=== PATIENT | male | born 1975 | race Caucasian/White ===

== ENCOUNTER 2017-06-19 16:35 | Inpatient (IN) | payer BC ==
[~2017-06-19] VITALS: Ht 188 cm; Wt 99.4 kg
--- NOTE | ~2017-06-19 | CON ---
PATIENT'S NAME: LESLIE GUO [facility] AGE: 41 Y [address] ROOM: [place] [address] LOCATION: [facility] ADMIT DATE: 06/19/2017 Consultation DISCHARGE DATE: FAMILY PHYSICIAN: Abimael Arreguin MD ATTENDING PHYSICIAN: JONAH NOBLE DATE OF CONSULTATION: 06/20/2017 REFERRING PHYSICIAN: GENEVA LOVE MD CHIEF COMPLAINT: Left foot pain and swelling. HISTORY OF PRESENT ILLNESS: Mr. Guo is a pleasant 41-year-old gentleman with a history of diabetes mellitus and peripheral diabetic neuropathy with complaints of left third toe pain and swelling that began approximately a week and a half ago. He developed erythema, warmth, and discharge from the tip of the toe. He noted blackening of the tip of the toe along with swelling and discomfort. It is something that he did not particularly pay attention to, but then recently noticed. He was seen and evaluated by his primary care doctor who placed him on oral antibiotics. There appeared to be some improvement in the cellulitis that was propagating up the leg, though the toe remained swollen, erythematous, and with purulent drainage coming from the tip of the toe. 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 He reports that his diabetes is otherwise fairly well controlled with the sugars in the low 100s with a hemoglobin A1c of approximately 7.5 per his report. Aggravating factors include standing, walking, and bearing weight, drainage soils the socks. Alleviating factors include rest, ice, and elevation. An MRI of the foot was obtained by the primary care provider, and there was concern for osteomyelitis. He has been started on IV antibiotics. Currently, the patient denies any constitutional symptoms such as fever, chills, or night sweats. He also denies any dizziness, chest pain, shortness of breath, blurred vision, nausea, vomiting, or diarrhea. PAST MEDICAL HISTORY: Includes type 2 diabetes and hyperlipidemia. PAST SURGICAL HISTORY: None. MEDICATIONS: Include: 1. AndroGel. 2. Aspirin. 3. Cialis. PATIENT'S NAME: LESLIE GUO [facility] AGE: 41 Y [address] ROOM: [place] [address] LOCATION: [facility] ADMIT DATE: 06/19/2017 Consultation DISCHARGE DATE: FAMILY PHYSICIAN: Abimael Arreguin MD ATTENDING PHYSICIAN: JONAH NOBLE 4. Invokana. 5. Meloxicam. 6. Metformin. ALLERGIES: NO KNOWN DRUG ALLERGIES. FAMILY HISTORY: Includes cancer, diabetes, and hypertension. SOCIAL HISTORY: The patient denies any alcohol, tobacco, or illicit drug use currently. REVIEW OF SYSTEMS: A 10-point review of systems is otherwise as mentioned above in the HPI. The patient's issue is musculoskeletal and pertains to the left lower extremity. The rest of the patient's review of systems is otherwise negative other than what is mentioned above. PHYSICAL EXAMINATION: VITAL SIGNS. Include temperature 98.2, respirations 16, heart rate of 53, and blood pressure 130/70. HEENT: Normocephalic and atraumatic. Extraocular movements are intact. PERRLA. Moist mucous membranes. Oropharyngeal airway is clear. NECK: Supple. Trachea is in the midline. CARDIOVASCULAR: Regular rate and rhythm. CHEST: Normal and symmetric respirations observed bilaterally. ABDOMEN: Soft, nontender, and nondistended. MUSCULOSKELETAL: Left Lower Extremity: Focal examination of the patient's left lower extremity reveals that the compartments of the thigh, leg, and foot are soft. There are palpable dorsalis pedal and posterior tibial pulses. There appears to be good capillary refill in all the toes except the third. Focal examination of the third digit reveals surrounding erythema, sausage digit with swelling, and a 2 cm x 2 cm necrotic stage IV diabetic ulcer at the tip of the toe. The patient has pain with manipulation of the toe. There appears to be some trace cellulitis coming up the foot, though it appears to be resolving as he is currently on IV antibiotics. Dorsiflexion of the ankle is to neutral with the knee extended and improves 15 degrees past neutral with the knee flexed. The patient has normal knee exam with full range of motion where the collaterals and cruciates are stable. There is no knee joint effusion. LABORATORY VALUES: Include hemoglobin of 14, hematocrit of 43.4, white blood cell count of 6.9, and platelet count of 217. CRP is 1.44 and ESR is 22, both elevated. Glucose PATIENT'S NAME: LESLIE GUO [facility] AGE: 41 Y [address] ROOM: [address] [address] LOCATION: [facility] ADMIT DATE: 06/19/2017 Consultation DISCHARGE DATE: FAMILY PHYSICIAN: Abimael Arreguin MD ATTENDING PHYSICIAN: JONAH NOBLE currently 157. IMAGING: An MRI of the left foot reveals swelling and bony marrow edema in the third toe with associated soft tissue swelling consistent with cellulitis. No focal collection or abscess noted. IMPRESSION: 1. Left third toe gangrene with stage IV diabetic pressure sore with surrounding cellulitis and purulent drainage. 2. Diabetes mellitus. 3. Diabetic peripheral neuropathy. 4. Gastrocnemius equinus/shortened Achilles tendon. PLAN: I had a long discussion today with the patient regarding his left lower extremity. The patient has an ulcer at the third toe that is infected. There is likely underlying osteomyelitis. Regardless, it is not healing and has not healed with antibiotic therapy. I am recommending amputation of the third toe at the metatarsophalangeal joint and a gastrocnemius recession procedure to address the equinus present. I discussed the risks, benefits, and alternatives to pursuing surgical intervention with the patient in detail. I discussed the risks of anesthesia, infection, bleeding, and/or injury to neurovascular structures. Permit obtained. Informed consent was also obtained. The patient would like to proceed with surgery. Currently, the patient is n.p.o. for now. He will be nonweightbearing on the left lower extremity. They may continue the IV antibiotics. We will likely also obtain intraoperative cultures. I would like to plan for surgery as soon as this afternoon to treat this definitively. The patient expressed understanding of this. We will plan for surgery as soon as this afternoon. MD BILL MILLAN/obed /[id number] d: 06/20/17 1355 t: 06/24/17 0824, CONSULTATION REPORT
--- NOTE | ~2017-06-19 | OR ---
PATIENT'S NAME: LESLIE GUO [facility] AGE: 41 Y [address] ROOM: [place] [address] LOCATION: [facility] ADMIT DATE: 06/19/2017 OR/Procedure Report DISCHARGE DATE: FAMILY PHYSICIAN: Abimael Arreguin MD ATTENDING PHYSICIAN: JONAH NOBLE SURGEON: Pedro Bro MD APPRENTICE ARCHITECT: Andres Garrett PA-C. DATE OF PROCEDURE: 06/20/2017 PREOPERATIVE DIAGNOSES: 1. Left 3rd toe stage 4 diabetic ulcer with osteomyelitis and gangrene. 2. Shortened Achilles tendon/gastrocnemius equinus. POSTOPERATIVE DIAGNOSES: 1. Left 3rd toe stage 4 diabetic ulcer with osteomyelitis and gangrene. 2. Shortened Achilles tendon/gastrocnemius equinus. PROCEDURE: 1. Left gastrocnemius recession procedure. 2. Left 3rd toe amputation at metatarsophalangeal joint. 3. Use of intraoperative fluoroscopy, less than 1 hour. ANESTHESIA: General endotracheal anesthesia. FLUIDS: See Anesthesia report. ESTIMATED BLOOD LOSS: Minimal. TOURNIQUET: Left proximal thigh 250 mmHg. SPECIMEN: Left 3rd toe. COMPLICATIONS: None. DISPOSITION: Stable in PACU. COUNTS: All counts correct. INDICATIONS: Mr. Guo is a pleasant 41-year-old gentleman who underwent the noted procedures above. The risks, benefits, and alternatives of pursuing surgical intervention were discussed with the patient in detail. I marked the patient's left lower extremity indicating the correct surgical site. Anesthesia was consulted for their perioperative evaluation of the patient. DESCRIPTION OF PROCEDURE: The patient was brought from the holding area to PATIENT'S NAME: LESLIE GUO [facility] AGE: 41 Y [address] ROOM: [address] [address] LOCATION: [facility] ADMIT DATE: 06/19/2017 OR/Procedure Report DISCHARGE DATE: FAMILY PHYSICIAN: Abimael Arreguin MD ATTENDING PHYSICIAN: JONAH NOBLE the operating room. A time-out was performed. General endotracheal anesthesia was administered. The patient was supine on the operating room table. Left lower extremity was then prepped and draped in a sterile fashion. An Esmarch was used to exsanguinate the limb. The tourniquet was inflated to 250 mmHg. I turned my attention the medial aspect of the leg. A surgical incision was made at the medial leg using a 15 blade knife through skin and subcutaneous tissue. I then incised the fascia of the medial aspect of the leg, I identified the gastrocnemius aponeurosis. I performed my gastrocnemius recession procedure. I had to dorsiflex the ankle and I achieved improved ankle dorsiflexion. The wound was then copiously irrigated and closed in layers. The skin was approximated with kera. I then turned my attention to the foot. There was cellulitis, erythema, and swelling of the toe along with a stage 4 ulcer with purulent drainage coming from the plantar surface of the tip of the third toe. Using a 15 blade knife, I made a fishmouth flap at the dorsal and plantar aspects of the toe to amputate it at the metatarsophalangeal joint. I introduced intraoperative fluoroscopy to identify the before and after amputation. The intraoperative fluoroscopy indicated a successful left third toe amputation at the metatarsophalangeal joint of the foot. The wound was then copiously irrigated with a normal sterile saline solution via pulsatile lavage. The wound was then approximated using a 2-0 nylon suture in an interrupted horizontal mattress fashion. Sterile dressing was placed in the form of Xeroform, followed by 4x4, Webril, and Kayode bandage. The patient was placed into a postop shoe. The amputated toe was sent for specimen. The patient was then transferred from the operating room table onto a hospital bed and extubated. He was brought to the recovery room in stable condition. There were no intraoperative complications noted. Of note, my PA, Andres Garrett PA-C, played an integral role in the intraoperative care of this patient. This included preoperative positioning, intraoperative expert retraction, and closing and dressing functions. IMPRESSION: The patient is status post the noted procedures above. PLAN: The patient will be nonweightbearing on the left lower extremity in a postop shoe. We encouraged to rest, ice, and elevate the leg going forward. PATIENT'S NAME: LESLIE GUO [facility] AGE: 41 Y [address] ROOM: [address] [address] LOCATION: [facility] ADMIT DATE: 06/19/2017 OR/Procedure Report DISCHARGE DATE: FAMILY PHYSICIAN: Abimael Arreguin MD ATTENDING PHYSICIAN: JONAH NOBLE Postoperative antibiotics will be administered per routine. Infectious Disease consult may be obtained postoperatively. DVT prophylaxis may be in the form of aspirin. I will continue to monitor the patient closely in the postoperative period. MD BILL MILLAN/obed /[id number] d: 06/20/17 1854 t: 06/24/17 0827, OPERATIVE SUMMARY
--- NOTE | ~2017-06-19 | DS ---
PATIENT'S NAME: LESLIE GUO [facility] AGE: 41 Y [address] ROOM: [address] [place], [place] [address] LOCATION: [facility] [place] ADMIT DATE: 06/19/2017 Discharge Summary DISCHARGE DATE: 06/24/2017 FAMILY PHYSICIAN: Abimael Arreguin MD ATTENDING PHYSICIAN: Talon Jones HOSPITAL COURSE: This is a 41-year-old white male, who has known type 2 diabetes previously under control. He has had a sore which began after an injury at a water park on his left foot. It has been primarily on the third toe. He scraped on a water park while on vacation and subsequently began having more soreness and developed an ulcer on the underside of his third digit. He was seen and had an x-ray, which showed a fracture of the base of his second metatarsal. He failed patient treatment for cellulitis with IV antibiotics as well as p.o. antibiotics. He was subsequently admitted to the hospital for IV antibiotics and consultation with an orthopedist. He had an MRI showing osteomyelitis. He was admitted to the hospital and begun on antibiotics in the form of Zosyn and vancomycin. Consultation was obtained with Dr. Bro. Upon consultation, the [employer] consultant felt like the patient needed urgent amputation of his third toe on the left foot because of osteomyelitis. The next day, he already began feeling better. He continued on antibiotics. Blood sugars were monitored and managed with sliding scale insulin. Pharmacy was monitoring his vancomycin. Based on culture from the surgical specimen methicillin sensitive Staph aureus was cultured and vancomycin was discontinued. The patient was subsequently able to be discharged to home on p.o. antibiotics as well as consistent carbohydrate diet and medication for diabetes. Consultation was also to be undertaken with [facility] as outpatient on 06/26/2017. The patient was subsequently sent home on crutch, 1. Invokana. 2. Meloxicam p.r.n. 3. Metformin 1000 mg twice a day. 4. Levofloxacin 750 mg daily. 5. Aspirin 325 per day. 6. Sliding scale insulin. 7. Probiotic. 8. Acetaminophen. DISCHARGE INSTRUCTIONS: To follow up with myself on 07/09/2017. Dr. Bro on the 07/01/2017, and Infectious Disease consult on 06/26/2017. He will call the office with any worsening symptoms or concerns. Any fevers or chills will be reported. He will remain with the crutch, partial weight bearing on left foot using wooden shoe. He may walk on the left heel. The patient understands dismissal instructions. PATIENT'S NAME: LESLIE GUO [facility] AGE: 41 Y [address] ROOM: [place] [address] LOCATION: [facility] ADMIT DATE: 06/19/2017 Discharge Summary DISCHARGE DATE: 06/24/2017 FAMILY PHYSICIAN: Abimael Arreguin MD ATTENDING PHYSICIAN: Talon Jones ABIMAEL ARREGUIN MD TLP/modl /[id number] d: 07/16/172011 t: 07/22/17 1709, DISCHARGE SUMMARY
[2017-06-19] MEDS ORDERED: INVOKANA300 MG PO (17:22)
[2017-06-19] MEDS ORDERED: MOBIC7.5 MG PO (17:23)
[2017-06-19] MEDS ORDERED: GLUCOPHAGE1000 MG PO (17:23)
[2017-06-19] MEDS ORDERED: LEVOFLOXACIN750 MG PO (17:24)
[2017-06-19] MEDS ORDERED: BACTRIM DS1 TAB PO (17:26)
[2017-06-20 05:20] LABS: BASOPHIL % 0.6 %; EOSINOPHIL # 0.2 K/uL (0.0-0.5); EOSINOPHIL % 3.5 %; HEMATOCRIT 43.4 % (37.0-53.0); IMMATURE GRANULOCYTE # 0.1 K/uL (0.0-0.3); IMMATURE GRANULOCYTE % 0.7 %; LYMPHOCYTE # 1.9 K/uL (0.8-4.0); LYMPHOCYTE % 27.7 %; MCH 27.6 pg (27.0-34.0); MCHC 32.3 gm/dL (32.0-36.5); MCV 85.4 fl (83.0-98.0); MONOCYTE # 0.5 K/uL (0.0-1.0); MONOCYTE % 7.4 %; MPV 9.7 fl (9.4-12.4); NEUTROPHIL # (ANC) 4.2 K/uL (1.4-9.0); NEUTROPHIL % 60.1 %; NRBC % 0 /100WBC (0-0.00); PLATELET COUNT 217 K/uL (150-450); RBC 5.08 M/uL (4.00-6.00); RDW-CV 12.4 % (11.9-14.6); WBC 6.9 K/uL (4.0-11.0)
[2017-06-21 09:13] LABS: CREATININE 0.9 mg/dL (0.6-1.3)
[2017-06-23 05:42] LABS: CREATININE 0.8 mg/dL (0.6-1.3)
[2017-06-24 05:01] LABS: CREATININE 0.9 mg/dL (0.6-1.3)
[2017-06-24] MEDS ORDERED: ASPIRIN325 MG PO ×2 (12:03)
[2017-06-24] MEDS ORDERED: NOVOLOG100 UNIT/M SUB-Q (12:05)
[2017-06-24] MEDS ORDERED: FLORASTOR250 MG PO (12:06)
[2017-06-24] MEDS ORDERED: TYLENOL325 MG PO (12:07)
== END 2017-06-24 17:45 | disposition disaster alternative care site (69) | DRG 504 ==
LOC: G3N 16:42 → GMSU 06-21 10:48
PROVIDERS: ADMIT Family Medicine
PROC: 0Y6U0Z3 Detachment at Left 3rd Toe, Low, Open Approach (ICD-10-PCS; principal; 2017-06-20)
PROC: 0L8P0ZZ Division of Left Lower Leg Tendon, Open Approach (ICD-10-PCS; principal; 2017-06-20)
DX: M86.172 Other acute osteomyelitis, left ankle and foot (principal); E11.52 Type 2 diabetes mellitus with diabetic peripheral angiopathy with gangrene; E11.42 Type 2 diabetes mellitus with diabetic polyneuropathy; E11.621 Type 2 diabetes mellitus with foot ulcer; L03.032 Cellulitis of left toe; E78.2 Mixed hyperlipidemia; E11.65 Type 2 diabetes mellitus with hyperglycemia; Z79.82 Long term (current) use of aspirin; Z87.891 Personal history of nicotine dependence; B95.61 Methicillin susceptible Staphylococcus aureus infection as the cause of diseases classified elsewhere; Z23 Encounter for immunization; Z79.4 Long term (current) use of insulin
CPT/HCPCS: G0009; J2543; J2765; J3370; J7030; J7040; J7050